=== PATIENT | male | born 1980 | race Two or more races ===

== ENCOUNTER 2021-01-21 07:23 | Emergency (ER) | payer OTHER ==
[~2021-01-21] VITALS: Ht 167.6 cm; Wt 83.9 kg
[2021-01-21] MEDS ORDERED: SYNTHROID112 MCG (08:14)
== END 2021-01-21 10:26 | disposition home or self-care (01) ==
LOC: ER 07:23
DX: S16.1XXA Strain of muscle, fascia and tendon at neck level, initial encounter (principal); M62.830 Muscle spasm of back; X50.9XXA Other and unspecified overexertion or strenuous movements or postures, initial encounter; Y93.84 Activity, sleeping; Y92.092 Bedroom in other non-institutional residence as the place of occurrence of the external cause; Y99.8 Other external cause status